=== PATIENT | male | born 1995 | race Two or more races ===

== ENCOUNTER 2017-06-27 08:38 | Emergency (ER) | payer MEDICAID ==
[~2017-06-27] VITALS: Ht 172.7 cm; Wt 104.3 kg
--- NOTE | 2017-06-27 08:50 | NUR ---
Patient discharged to home in stable conditon. Written and verbal after care instructions given. Patient verbalizes understanding of instructions.PT WALKS IN STEADY GAIT. PT WITH FAMILY MEMBER.
== END 2017-06-27 08:57 | disposition home or self-care (01) ==
LOC: ER 08:41
DX: G51.0 Bell's palsy (principal)
CPT/HCPCS: A4663

== ENCOUNTER 2018-11-26 10:06 | Emergency (ER) | payer BC, MEDICAID ==
[~2018-11-26] VITALS: Ht 172.7 cm; Wt 117.9 kg
--- NOTE | 2018-11-26 10:44 | NUR ---
PATIENT WAS SEEN BY .
--- NOTE | 2018-11-26 11:06 | NUR ---
DC, RX AND FOLLOW UP INSTRUCTIONS GIVEN AND EXPLAINED TO BOTH PATIENT AND MOTHER WHO STATE THEY UNDERSTAND ALL INSTRUCTIONS.
== END 2018-11-26 11:07 | disposition home or self-care (01) ==
LOC: ER 10:06
DX: H66.92 Otitis media, unspecified, left ear (principal); H72.92 Unspecified perforation of tympanic membrane, left ear; I10 Essential (primary) hypertension
CPT/HCPCS: A4663